=== PATIENT | female | born 1950 | race Caucasian/White ===

== ENCOUNTER 2018-10-23 16:52 | Emergency (ER) | payer OTHER ==
[~2018-10-23] VITALS: Ht 165.1 cm; Wt 72.7 kg
[2018-10-23 16:56] VITALS: BP 182/98
[2018-10-23] MEDS ORDERED: ketorolac trometh inj. 60 MG/2 ML VIAL IM ONE (20:00)
[2018-10-23] MEDS ORDERED: NAPR-1154 PO (20:09)
== END 2018-10-23 21:38 | disposition home or self-care (01) ==
LOC: ER 16:53
DX: M25.562 Pain in left knee (principal); I83.91 Asymptomatic varicose veins of right lower extremity; I10 Essential (primary) hypertension; F12.90 Cannabis use, unspecified, uncomplicated; Z79.899 Other long term (current) drug therapy
CPT/HCPCS: 93971; 96372; 99284; J1885

== ENCOUNTER 2019-11-21 20:47 | Emergency (ER) | payer MEDICARE, MEDICAID ==
[~2019-11-21] VITALS: Ht 165.1 cm; Wt 72.7 kg
[~2019-11-21 20:47] MED LIST: NAPR-1154 PO
[2019-11-21 21:21] LABS: BASOPHILS # (AUTO) 0.1 X10'3 (0-0.2); BASOPHILS % (AUTO) 1.1 % (0-1); EOSINOPHILS # (AUTO) 0.1 X10'3 (0-0.9); EOSINOPHILS % (AUTO) 1.5 % (0-6); HEMATOCRIT 42.8 % (35.0-45.0); HEMOGLOBIN 14.2 g/dl (12.0-16.0); LYMPHOCYTES # (AUTO) 3.2 X10'3 (1.1-4.8); LYMPHOCYTES % (AUTO) 39.9 % (21-51); MEAN CORPUSCULAR HEMOGLOBIN 30.5 PG (27.0-31.0); MEAN CORPUSCULAR HGB CONC 33.1 g/dL (33.0-36.5); MEAN CORPUSCULAR VOLUME 92.3 FL (78-98); MEAN PLATELET VOLUME 10.8 FL (7.4-10.4); MONOCYTES # (AUTO) 0.5 X10'3 (0-0.9); MONOCYTES % (AUTO) 6.4 % (2-12); NEUTROPHILS # (AUTO) 4.1 X10'3 (1.8-7.7); NEUTROPHILS % (AUTO) 51.1 % (42-75); PLATELET COUNT 226 X10'3 (140-440); RED BLOOD COUNT 4.64 X10'6 (4.20-5.60); RED CELL DISTRIBUTION WIDTH 14.1 % (11.5-14.5)
[2019-11-21 21:27] LABS: ALANINE AMINOTRANSFERASE 26 U/L (12-78); ALBUMIN 3.8 G/DL (3.4-5.0); ALBUMIN/GLOBULIN RATIO 0.9 (1.1-1.5); ALKALINE PHOSPHATASE 80 IU/L (46-116); ANION GAP 15 (8-16); ASPARTATE AMINO TRANSFERASE 15 U/L (10-37); BILIRUBIN,TOTAL 0.2 MG/DL (0.1-1.0); BLOOD UREA NITROGEN 8 MG/DL (7-18); BUN/CREATININE RATIO 12.5 (6.6-38.0); CALCIUM 8.4 MG/DL (8.5-10.1); CHLORIDE 109 MMOL/L (99-107); CREATININE 0.64 MG/DL (0.40-0.90); GLUCOSE 91 MG/DL (70-104); SODIUM 144 MMOL/L (135-145); TOTAL CARBON DIOXIDE 20.3 MMOL/L (24-32); eGFR > 90 ML/MIN
[2019-11-21 21:30] LABS: TROPONIN I < 0.04 NG/ML (0.0-0.05)
--- NOTE | 2019-11-21 22:03 | NUR ---
gregor nickerson updated of pts headache 8 out of 10. He will see her shortly. pt with stable vs. given warm blankets.
[2019-11-21 22:15] LABS: LARGE PLATELETS FEW; PLATELET ESTIMATE NORMAL
[2019-11-21] MEDS: ondansetron 4mg rapidly disintigrating tab PO ONE (22:24)
[2019-11-21] MEDS: HYDROcodone/acetaminophen 5mg/325mg tablet PO ONE ×2 (22:30→22:33)
--- NOTE | 2019-11-21 22:31 | NUR ---
first norco tablet dropped on floor and wasted with 2nd RN. 2nd tablet ordered
[2019-11-21] MEDS ORDERED: IBUP-1984 PO (22:40)
[2019-11-21] MEDS ORDERED: PENI500T2 PO (22:40)
[2019-11-21 23:02] VITALS: BP 171/94
== END 2019-11-21 23:11 | disposition home or self-care (01) ==
LOC: ER 20:48
DX: K04.7 Periapical abscess without sinus (principal); K02.9 Dental caries, unspecified; F12.90 Cannabis use, unspecified, uncomplicated; I10 Essential (primary) hypertension
CPT/HCPCS: 36415; 71045; 80053; 84484; 85025; 93005; 99284

== ENCOUNTER 2021-12-21 19:28 | Emergency (ER) | payer MEDICARE, MEDICAID ==
[~2021-12-21] VITALS: Ht 162.6 cm; Wt 107.8 kg
[2021-12-21 19:43] VITALS: BP 212/113
== END 2021-12-22 11:50 | disposition home or self-care (01) ==
LOC: ER 19:29
DX: F41.9 Anxiety disorder, unspecified (principal); Z53.21 Procedure and treatment not carried out due to patient leaving prior to being seen by health care provider